=== PATIENT | male | born 1965 | race Caucasian/White ===

== ENCOUNTER 2017-08-15 13:27 | Day surgery (SDC) | payer BC ==
[2017-08-15] MEDS ORDERED: PROPOFOL 40 ML (16:53)
== END 2017-08-15 19:11 | disposition home or self-care (01) ==
LOC: GIL 13:27
DX: Z12.11 Encounter for screening for malignant neoplasm of colon (principal); K57.90 Diverticulosis of intestine, part unspecified, without perforation or abscess without bleeding
CPT/HCPCS: 45378